=== PATIENT | male | born 1970 | race Two or more races ===

== ENCOUNTER 2021-12-10 07:14 | Outpatient (CLI) | payer OTHER | END 2021-12-10 07:17 | disposition home or self-care (01) | LOC: NUCLEAR 07:14 | DX: I25.10 Atherosclerotic heart disease of native coronary artery without angina pectoris (principal) | CPT/HCPCS: 78452; 93017; A9500; J0153 ==

== ENCOUNTER 2022-02-17 10:34 | Outpatient (CLI) | payer OTHER | END 2022-02-17 10:44 | disposition home or self-care (01) | LOC: TOM 10:34 | DX: C67.9 Malignant neoplasm of bladder, unspecified (principal) ==